=== PATIENT | male | born 1985 | race Caucasian/White ===

== ENCOUNTER 2016-11-02 18:45 | Emergency (ER) | payer MEDICAID, OTHER ==
[~2016-11-02] VITALS: Ht 190.5 cm; Wt 131.5 kg
[2016-11-02] MEDS ORDERED: OMEP20CA3 (18:54)
[2016-11-02] MEDS ORDERED: KLON0.5T (18:54)
[2016-11-02] MEDS ORDERED: QUET1TAB8 (18:54)
[2016-11-02] MEDS ORDERED: ADDERALL (18:54)
[2016-11-02] MEDS ORDERED: ZOLO100T (18:54)
[2016-11-02 19:43] LABS: BASO # 0.1 K/mm3 (0.0-0.2); BASO % 0.5 % (0.0-1.0); EOS # 0.3 K/mm3 (0.0-0.50); EOS % 2.7 % (0.0-3.0); LARGE UNSTAINED CELL # 0.2 K/mm3 (0.0-0.4); LARGE UNSTAINED CELL % 1.6 % (0.0-4.0); LYMPH # 3.2 K/mm3 (1.5-4.5); LYMPH % 26.6 % (24.0-44.0); MEAN CORPUSCULAR HEMOGLOBIN 29.3 pg (27.0-33.0); MEAN CORPUSCULAR HGB CONC 32.8 g/dl (32.0-36.5); MEAN CORPUSCULAR VOLUME 89.2 fl (80.0-96.0); MONO # 0.8 K/mm3 (0.0-0.8); MONO % 6.6 % (0.0-5.0); NEUTROPHILS # 7.4 K/mm3 (1.8-7.7); NEUTROPHILS % 61.9 % (36.0-66.0); PLATELET COUNT, AUTOMATED 323 k/mm3 (150-450); RED CELL DISTRIBUTION WIDTH 12.9 % (11.5-14.5); WHITE BLOOD COUNT 11.9 K/mm3 (4.0-10.0)
[2016-11-02 20:11] LABS: ANION GAP 6 MEQ/L (8-16); BLOOD UREA NITROGEN 12 MG/DL (7-18); CALCIUM LEVEL 8.3 MG/DL (8.5-10.1); CARBON DIOXIDE LEVEL 26 MEQ/L (21-32); CHLORIDE LEVEL 107 MEQ/L (98-107); CREATININE FOR GFR 0.78 MG/DL (0.70-1.30); GLOMERULAR FILTRATION RATE > 60.0 (>60); GLUCOSE, FASTING 87 MG/DL (70-105); SODIUM LEVEL 139 MEQ/L (136-145)
[2016-11-02] MEDS ORDERED: ISOVUE-370 76% 100ML VIAL (Q9967) As Ordered ONE (20:32)
--- NOTE | 2016-11-02 21:20 | REPUSA ---
CT angiogram of the chest Clinical statement: Chest pain and hemoptysis. Technique: Multiple axial CT images were obtained from the thoracic inlet through the upper abdomen a fter a bolus administration of nonionic intravenous contrast. Coronal and sagittal reconstructions we re also obtained. No comparison is available. Findings: The pulmonary arteries are well-opacified with contrast, with no intraluminal filling defec ts to suggest embolism. The thoracic aorta is unremarkable. Thyroid gland is within normal limits. Th ere is no thoracic lymphadenopathy. There are no pericardial or pleural effusions There is a small fo moise area consolidation in the superior segment of the left lower lobe along the lateral aspect. Limit ed imaging of the upper abdomen is unremarkable. There are no suspicious osseous lesions. Impression: 1. No evidence of pulmonary embolism. 2. Left lower lobe pneumonia.
[2016-11-02] MEDS ORDERED: AZIT250T3 PO (21:45)
[2016-11-02] MEDS ORDERED: AZITHROMYCIN 250 MG TAB PO ONE (22:00)
[2016-11-02 22:07] VITALS: BP 133/77
--- NOTE | 2016-11-04 14:39 | ECGEPIP ---
Stationary ECG Study [facility] - ED Test Date: 2016-11-02 Pat Name: PEDRO FLORES Department: Room: - Gender: M Picker Packer: rn : [id number] Requested By: NIDIA Muñoz PA-C Order Number: [id number] Reading MD: Radha Herzog Measurements Intervals [place] Rate: 74 P: 28 TN: 175 QRS: 55 QRSD: 98 T: 56 QT: 375 QTc: 417 Interpretive Statements SINUS RHYTHM NO PRIOR FOR COMPARISON Electronically Signed On 11-04-2016 14:39:21 EDT by Radha Herzog
== END 2016-11-02 22:09 | disposition home or self-care (01) ==
LOC: M ED 19:19
DX: J18.1 Lobar pneumonia, unspecified organism (principal); F17.200 Nicotine dependence, unspecified, uncomplicated; K21.9 Gastro-esophageal reflux disease without esophagitis; F41.9 Anxiety disorder, unspecified; F32.9 Major depressive disorder, single episode, unspecified; F90.9 Attention-deficit hyperactivity disorder, unspecified type; Z79.899 Other long term (current) drug therapy; Z88.2 Allergy status to sulfonamides
CPT/HCPCS: 36415; 71275; 80048; 82553; 85025; 85379; 93005; 99283; Q9967

== ENCOUNTER → 2018-04-01 | Outpatient (REF) | payer OTHER | LOC: M SFHCADAM 16:31 | DX: E78.49 Other hyperlipidemia (principal); E66.01 Morbid (severe) obesity due to excess calories ==

== ENCOUNTER → 2018-11-19 | Outpatient (CLI) | payer MEDICAID ==
[~2018-11-19] MED LIST: ADDERALL; AZIT-12 PO; KLON0.5T; OMEP20CA3; QUET1TAB8; ZOLO100T
== END ==
LOC: M OUTALCOH 08:57
PROVIDERS: ATTEND Psychiatry & Neurology Psychiatry
DX: F10.20 Alcohol dependence, uncomplicated (principal)

== ENCOUNTER 2018-12-23 16:00 | Outpatient (RCR) | payer MEDICAID | END 2018-12-28 | LOC: M OUTALCOH 16:00 | PROVIDERS: ATTEND Psychiatry & Neurology Psychiatry | DX: F10.20 Alcohol dependence, uncomplicated (principal) ==